=== PATIENT | female | born 1960 | race Two or more races ===

== ENCOUNTER 2017-01-28 20:18 | Emergency (ER) | payer OTHER ==
[~2017-01-28] VITALS: Ht 167.6 cm; Wt 70.8 kg
[2017-01-28 20:35] VITALS: BP 142/84
[2017-01-28] MEDS ORDERED: KETOROLAC TROMETHAMINE INJ 60 MG/2 ML VIAL IM ONE ×2 (21:00→21:06)
[2017-01-28] MEDS ORDERED: TRAMADOL HCL 50 MG TABLET ONE (21:15)
--- NOTE | 2017-01-28 21:22 | NUR ---
PT REFUSED TORADOL, REQUESTING A PILL INSTEAD. NOTIFIED. ORDER FOR TRAMADOL RECEIVED AND ADMINISTERED.
[2017-01-28] MEDS ORDERED: TRAMADOL HCL 50 MG TABLET PO ONE (21:30)
== END 2017-01-28 22:31 | disposition home or self-care (01) ==
LOC: ER 20:22
DX: S32.018A Other fracture of first lumbar vertebra, initial encounter for closed fracture (principal); W19.XXXA Unspecified fall, initial encounter; Y93.89 Activity, other specified; Y92.89 Other specified places as the place of occurrence of the external cause; Y99.8 Other external cause status
CPT/HCPCS: 72110; 99284; A4606; Z7610; J1885

== ENCOUNTER 2017-12-04 18:37 | Emergency (ER) | payer OTHER ==
[~2017-12-04] VITALS: Ht 165.1 cm; Wt 71.7 kg
--- NOTE | 2017-12-04 19:13 | NUR ---
DR. BROOKS IS AT THE BEDSIDE EVALUATING THE PT.
[2017-12-04] MEDS ORDERED: ONDANSETRON HCL/PF 4 MG/2 ML VIAL ONE (19:21)
[2017-12-04] MEDS ORDERED: IV D5 LR 1,000 ML IV ONE (19:30)
[2017-12-04] MEDS ORDERED: ONDANSETRON HCL/PF 4 MG/2 ML VIAL IVP ONE (19:30)
[2017-12-04 19:38] LABS: BASOPHILS % (AUTO) 0.1 % (0.0-2.0); EOSINOPHILS # (AUTO) 0.2 /CMM (0.0-0.7); EOSINOPHILS % (AUTO) 2.3 % (0.0-6.0); HEMATOCRIT 44 % (33-45); HEMOGLOBIN 15.2 g/dL (11.5-14.8); LYMPHOCYTES # (AUTO) 0.8 /CMM (0.8-4.8); LYMPHOCYTES % (AUTO) 10.4 % (20.0-44.0); MEAN CORPUSCULAR HEMOGLOBIN 29 PG (26.0-33.0); MEAN CORPUSCULAR HGB CONC 34 g/dl (31.0-36.0); MEAN CORPUSCULAR VOLUME 86 fL (82-100); MONOCYTES # (AUTO) 0.5 /CMM (0.1-1.30); MONOCYTES % (AUTO) 6.8 % (2.0-12.0); NEUTROPHILS # (AUTO) 6.4 /CMM (1.8-8.9); NEUTROPHILS % (AUTO) 80.4 % (43.0-81.0); PLATELET COUNT (AUTO) 345 /CMM (150-450); RED BLOOD CELL COUNT(AUTO) 5.19 MIL/uL (4.0-5.2)
[2017-12-04 19:47] LABS: ALBUMIN 4.1 g/dL (3.4-5.0); BILIRUBIN,DIRECT 0.2 mg/dL (0.0-0.2); BILIRUBIN,TOTAL 0.6 mg/dL (0.2-1.0); TOTAL PROTEIN, SERUM 9.7 g/dL (6.4-8.2)
[2017-12-04 20:15] LABS: CALCIUM, SERUM 9.5 mg/dL (8.5-10.1); CREATININE 0.9 mg/dL (0.6-1.3); POTASSIUM 3.4 mmol/L (3.5-5.1)
--- NOTE | 2017-12-04 20:51 | NUR ---
Patient discharged to home in stable condition. Written and verbal after care instructions given. Patient verbalizes understanding of instruction. IV removed. Catheter intact and site benign. Pressure and 4x4 applied to site. No bleeding noted. PT AMBULATED OUT WITH A STEADY GAIT. VSS.
[2017-12-04 20:53] VITALS: BP 129/82
== END 2017-12-04 20:51 | disposition home or self-care (01) ==
LOC: ER 18:39
DX: R11.10 Vomiting, unspecified (principal); R19.7 Diarrhea, unspecified; R10.9 Unspecified abdominal pain; Z60.2 Problems related to living alone
CPT/HCPCS: 36415; 80048; 80076; 85025; 96361; 96374; 99284; A4606; J2405; Z7610; J3490; J7030